=== PATIENT | male | born 1935 | race Caucasian/White ===

== ENCOUNTER 2016-09-06 09:48 | Emergency (ER) | payer OTHER ==
[~2016-09-06] VITALS: Ht 172.7 cm; Wt 82.0 kg
[2016-09-06 10:41] LABS: ADD MIUA? YES; BILIRUBIN NEGATIVE; BLOOD MODERATE; COLOR YELLOW ((YELLOW)); GLUCOSE (STRIP) NEGATIVE; KETONES 20; LEUKOCYTES NEGATIVE; NITRITE NEGATIVE; PROTEIN (STRIP) 30; SPECIFIC GRAVITY 1.019 (1.000-1.030); UROBILINOGEN 0.2 MG/DL (0.2-1.0)
[2016-09-06 10:49] LABS: BACTERIA NONE SEEN /HPF; CALCIUM OXALATE CRYSTALS 2+ /HPF; EPITHELIAL CELLS RARE /HPF; GRANULAR CASTS 0-5 /LPF; MUCUS TRACE /LPF; RED BLOOD CELLS 30-40 /HPF (0-5); UCUL ADDED? NO; WHITE BLOOD CELLS 0-5 /HPF (0-5)
[2016-09-06 11:16] LABS: HEMATOCRIT 42.9 % (38.0-50.0); MCH 31.1 PG (29.0-34.0); MCHC 33.3 G/DL (30.0-36.0); MCV 93.3 FL (86-99); PLATELET COUNT 212 K/uL (156-360); RBC DIS.WIDTH-SD 41.3 % (39-53)
[2016-09-06 11:29] LABS: CHLORIDE 104 mEq/L (99-109); POTASSIUM 4.9 mEq/L (3.7-5.4); SODIUM 140 mEq/L (136-147)
[2016-09-06 11:32] LABS: GLUCOSE 114 mg/dL (70-99)
[2016-09-06 11:33] LABS: ANION GAP 9 MEQ/L (2-14)
[2016-09-06 11:34] LABS: TOTAL BILIRUBIN 1.3 mg/dL (0.0-1.0)
[2016-09-06 11:35] LABS: ALKALINE PHOSPHATASE 66 IU/L (3-129); GFR ESTIMATE (CALCULATED) > 59 mL/min/
[2016-09-06 11:36] LABS: UREA NITROGEN (BUN) 23 mg/dL (9-23)
[2016-09-06 11:39] LABS: LIPASE 20 U/L (1.0-51.0)
[2016-09-06 11:52] LABS: TROP-I INTERPRETATION NEGATIVE; TROPONIN-I < 0.01 ng/mL (0.0-0.30)
[2016-09-06 15:51] VITALS: BP 167/87
== END 2016-09-06 16:06 | disposition home or self-care (01) ==
LOC: EME 09:48
PROVIDERS: Nurse Practitioner Family
DX: K21.9 Gastro-esophageal reflux disease without esophagitis (principal); K40.20 Bilateral inguinal hernia, without obstruction or gangrene, not specified as recurrent; I10 Essential (primary) hypertension; E78.5 Hyperlipidemia, unspecified; K59.00 Constipation, unspecified; G25.81 Restless legs syndrome; Z87.891 Personal history of nicotine dependence
CPT/HCPCS: 74177; 80053; 81003; 83690; 84484; 85027; 93005; 99281; 99285; J2270; J2405; S0028

== ENCOUNTER → 2016-10-06 | Outpatient (CLI) | payer OTHER ==
[~2016-10-06] VITALS: Ht 172.7 cm; Wt 80.3 kg
[~2016-10-06] MED LIST: ACIPHEX20 MG PO; ANUSOL HC,ANUCO25 MG PR; CALCIUM + D3 E1 EACH PO; CIALIS10 MG PO; COZAAR25 MG PO; DAILY VITE1 EAC1 PO; LEXAPRO10 MG PO; LO-DOSE ASPIRIN81 M2 PO; MIRAPEX0.25 MG PO; NORVASC5 MG PO; SKELAXIN800 MG PO; ULTRAM50 MG PO; ZOCOR40 MG PO
== END | disposition home or self-care (01) ==
LOC: AMB 09:34
DX: K22.8 Other specified diseases of esophagus (principal); R13.10 Dysphagia, unspecified; K44.9 Diaphragmatic hernia without obstruction or gangrene; K22.5 Diverticulum of esophagus, acquired; R59.1 Generalized enlarged lymph nodes; I10 Essential (primary) hypertension; R73.09 Other abnormal glucose; G25.81 Restless legs syndrome; R63.4 Abnormal weight loss; Z87.891 Personal history of nicotine dependence; Z79.82 Long term (current) use of aspirin; Z87.11 Personal history of peptic ulcer disease; Z83.3 Family history of diabetes mellitus; Z82.5 Family history of asthma and other chronic lower respiratory diseases
CPT/HCPCS: 88304; 88305; 88312; 88342 TC; C1726; J0330

== ENCOUNTER → 2017-08-11 | Outpatient (CLI) | payer OTHER | END | disposition home or self-care (01) | LOC: RAD 07:20 | DX: I25.10 Atherosclerotic heart disease of native coronary artery without angina pectoris (principal); N28.1 Cyst of kidney, acquired; K57.30 Diverticulosis of large intestine without perforation or abscess without bleeding; R59.1 Generalized enlarged lymph nodes | CPT/HCPCS: 71260; 74177 ==